=== PATIENT | female | born 2000 | race Caucasian/White ===

== ENCOUNTER → 2019-02-02 | Outpatient (CLI) | payer OTHER | LOC: MC.RAD 11:00 | DX: N63.10 Unspecified lump in the right breast, unspecified quadrant (principal) ==

== ENCOUNTER 2020-04-18 06:59 | Emergency (ER) | payer OTHER ==
[~2020-04-18] VITALS: Ht 162.6 cm; Wt 61.4 kg
[2020-04-18 07:17] VITALS: TEMP 98.8
[2020-04-18 09:31] LABS: COLLECTION METHOD CLEAN CATCH
[2020-04-18 09:36] LABS: BASO % 0.2 % (0.0-2.0); EOS # 0.1 (0.0-0.7); EOS % 0.8 % (0-4.0); GRAN # 11.3 (1.4-6.5); GRAN % 84.6 % (42.2-75.2); HEMOGLOBIN 14.4 g/dl (12.5-16.0); LYMPH # 0.9 (1.2-3.4); LYMPH % 6.7 % (20.0-51.0); MEAN CELL VOLUME 95 fl (80.0-100.0); MEAN CORPUSCULAR HEMOGLOBIN 31 pg (27.0-31.0); MEAN CORPUSCULAR HGB CONC 33 g/dl (33.0-37.0); MEAN PLATELET VOLUME 9.4 fl (7.4-10.4); MONO % 7.4 % (1.7-9.3); PLATELET COUNT 447 K/mm3 (130-400); RED BLOOD COUNT 4.65 M/mm3 (4.10-5.30)
[2020-04-18 09:52] LABS: ALBUMIN 4.6 gm/dL (3.5-5.0); BILIRUBIN,TOTAL 0.5 mg/dL (0.0-1.0); C-REACTIVE PROTEIN 7.8 mg/dL (0.0-0.9); CALCIUM 9.3 mg/dL (8.4-10.2); CREATININE, serum 0.74 (0.52-1.25); POTASSIUM 3.7 mmol/L (3.4-5.0); TOTAL PROTEIN 8.5 gm/dL (6.4-8.2)
[2020-04-18 10:01] LABS: MUCOUS Present /lpf; PH 5 (5-8); URINE APPEARANCE Hazy; URINE BACTERIA None Seen /hpf; URINE BILIRUBIN Negative (NEGATIVE); URINE BLOOD Negative (NEGATIVE); URINE COLOR Yellow; URINE GLUCOSE Negative (NEGATIVE); URINE KETONE Negative (NEGATIVE); URINE LEUKOCYTE ESTERASE Negative (NEGATIVE); URINE NITRATE Negative (NEGATIVE); URINE PROTEIN(semi-quant) 2+ (NEGATIVE); URINE RBC 0-2 /hpf; URINE UROBILINOGEN Negative (NEGATIVE)
[2020-04-18] MEDS ORDERED: DOXYCYCLINE 10100 MG PO (11:51)
[2020-04-18 12:55] VITALS: BP 118/76; PULSE 100
== END 2020-04-18 12:56 | disposition home or self-care (01) ==
LOC: COL.ER 06:59
PROVIDERS: Physician Assistant
DX: N73.9 Female pelvic inflammatory disease, unspecified (principal); R11.0 Nausea; R63.0 Anorexia; Z32.02 Encounter for pregnancy test, result negative; Z88.0 Allergy status to penicillin
CPT/HCPCS: J0696; J1885; Q9967

== ENCOUNTER 2021-07-05 09:24 | Outpatient (CLI) | payer OTHER, BC, MEDICAID ==
[~2021-07-05] VITALS: Ht 162.6 cm; Wt 70.9 kg
[~2021-07-05 09:24] MED LIST: DOXYCYCLINE 10100 MG PO
[2021-07-05 09:40] VITALS: BP 112/74; PULSE 104; TEMP 98.1
[2021-07-05] MEDS ORDERED: PRILOSEC 20MG20 MG PO (09:40)
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
[2021-07-05 10:40] VITALS: PULSE 78
--- NOTE | 2021-07-05 10:41 | NUR ---
1040 REACTIVE STRIP NOTED. NO COMPLIANTS OF PAIN, BLEEDING, LEAKING, ALL DISCHARGE INSTRUCTIONS GIVEN WITH VERBAL UNDERSTANDING NOTED.
== END 2021-07-05 10:40 | disposition home or self-care (01) ==
LOC: LDRO 09:24
DX: O9A.219 Injury, poisoning and certain other consequences of external causes complicating pregnancy, unspecified trimester (principal); Z3A.00 Weeks of gestation of pregnancy not specified; V89.0XXA Person injured in unspecified motor-vehicle accident, nontraffic, initial encounter

== ENCOUNTER 2021-08-20 02:00 | Outpatient (CLI) | payer BC, MEDICAID ==
[~2021-08-20] VITALS: Ht 160 cm; Wt 78.2 kg
[~2021-08-20 02:00] MED LIST changes: +PRILOSEC 20MG20 MG PO
--- NOTE | 2021-08-20 02:06 | NUR ---
PT BROUGHT TO UNIT IN WHEELCHAIR. PT PRESENTS COMPLAINING OF CRAMPING FOR 1 WEEK AND MUCOUS PLUG FALLING OUT. PT DENIES SROM, DECREASED MOVEMENT, OR VAGINAL BLEEDING. PT IS G1PO, 36.6 WEEKS, GBS UNKNOWN. PT IS SHOWN TO ROOM LDR 4 BY THIS RN AND INSTRUCTED TO PUT ON GOWN
--- NOTE | 2021-08-20 02:10 | NUR ---
EFM AND TOCO APPLIED. PLAN OF CARE DISCUSSED AND PT VERBALIZED AN UNDERSTANDING.
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
[2021-08-20 02:30] VITALS: BP 116/61; PULSE 104; TEMP 98.3
[2021-08-20] MEDS ORDERED: ASPIRIN 81M81 MG/TA2 PO (02:30)
[2021-08-20] MEDS ORDERED: NATURAL IRON65 MG PO (02:31)
[2021-08-20] MEDS ORDERED: PRENATAL 191 CTB (02:31)
--- NOTE | 2021-08-20 02:35 | NUR ---
CALL LIGHT WITHIN REACH, FRESH ICE WATER GIVEN TO PATIENT. PT RESTING IN BED, NO SIGNS OF DISTRESS. PT DENIES FURTHER NEEDS AT THIS TIME
--- NOTE | 2021-08-20 02:41 | NUR ---
VISIBLE BREAKS IN FHTS ARE OBSERVED. MOTHER SITTING STRAIGHT UP IN BED, RN ASSISTED PT INTO A LATERAL POSITION AND ADJUSTED EFM. PT DENIES FURTHER NEEDS AT THIS TIME
[2021-08-20 03:00] VITALS: BP 123/73; PULSE 80
--- NOTE | 2021-08-20 03:28 | NUR ---
EFM AND TOCO REMOVED TO ALLOW PT TO GET DRESSED. PLAN OF CARE DISCUSSED AND PT VERBALIZED AN UNDERSTANDING.
[2021-08-20 03:30] VITALS: BP 123/59; PULSE 86
--- NOTE | 2021-08-20 03:35 | NUR ---
DISCHARGE TEACHING REVIEWED WITH PATIENT AND PATIENT VERBALIZED AN UNDERSTANDING AND DENIES FURTHER NEEDS AT THIS TIME. PT GIVEN COPY OF DISCHARGE TEACHING
--- NOTE | 2021-08-20 03:45 | NUR ---
PT DISCHARGED IN STABLE UNDELIVERED CONDITION AT THIS TIME. PT AND FRIEND AMBULATED OFF UNIT AT THIS TIME
== END 2021-08-20 03:45 | disposition home or self-care (01) ==
LOC: LDRO 02:00 → LDR 02:06 → LDRO 03:45
DX: O26.893 Other specified pregnancy related conditions, third trimester (principal); M54.50 Low back pain, unspecified; R10.9 Unspecified abdominal pain; Z3A.36 36 weeks gestation of pregnancy

== ENCOUNTER 2021-08-28 03:57 | Outpatient (CLI) | payer BC, MEDICAID ==
[~2021-08-28] VITALS: Ht 160 cm; Wt 75.5 kg
[~2021-08-28 03:57] MED LIST changes: +ASPIRIN 81M81 MG/TA2 PO; +NATURAL IRON65 MG PO; +PRENATAL 191 CTB
--- NOTE | 2021-08-28 04:00 | NUR ---
Ambulatory to unit for labor assessment. Reports "contractions woke me up and they've been going on for 2 hours. They seem to be father apart now" Denies vaginal bleeding or loss of fluid. Oriented to room, monitor, plan of are.
[2021-08-28 04:16] VITALS: BP 122/79; PULSE 82; TEMP 98.5
--- NOTE | 2021-08-28 05:10 | NUR ---
repeat SVE with no changes noted.
[2021-08-28 05:15] VITALS: BP 126/79; PULSE 84
--- NOTE | 2021-08-28 05:30 | NUR ---
Discharge innstructions reviewed with pt. Questions invited and answere. Ambulatory off unit.
== END 2021-08-28 05:30 | disposition home or self-care (01) ==
LOC: LDRO 03:57
DX: O47.1 False labor at or after 37 completed weeks of gestation (principal); Z3A.38 38 weeks gestation of pregnancy

== ENCOUNTER 2021-09-04 02:02 | Outpatient (CLI) | payer BC, MEDICAID ==
[~2021-09-04] VITALS: Ht 160 cm; Wt 79.1 kg
[2021-09-04 02:30] VITALS: BP 132/87; PULSE 85; TEMP 97.8
--- NOTE | 2021-09-04 02:30 | NUR ---
0230 G1L0 39 WEEK GEST TO LR6 WITH C/O CONTRACTIONS STARTING AROUND 0100 TONIGHT. EFM ON. STATES CONTRACTIONS ABOUT EVERY 5 MINUTES BUT STATES HAS CONSTANT TIGHTENING FEELING ON TOP OF UTERUS. UTERUS PALPATED FOR SEVERAL MINUTES AND NO CONTRACTIONS FELT. NO CONTRACTIONS NOTED ON EFM. SVE /-2 WHICH PT STATES THAT WAS HER EXAM IN THE [facility]RS OFFICE LAST SATURDAY. ADM ASSESSMENT COMPLETED. 0245 SM 200 CC EMESIS OF UNDIGESTED FOOD. DR VELÁSQUEZ ON UNIT AND EFM PATTERN OBSERVED AND REPORT GIVEN.
[2021-09-04 03:30] VITALS: BP 138/87; PULSE 89
--- NOTE | 2021-09-04 03:30 | NUR ---
0330 SVE WITH NO CERVICAL CHANGE. DISMISS INSTRUCTIONS GIVEN. 0350 HOME WITH INSTRUCTIONS.
== END 2021-09-04 03:50 | disposition home or self-care (01) ==
LOC: LDR 02:02 → LDRO 02:02
DX: O47.1 False labor at or after 37 completed weeks of gestation (principal); Z3A.39 39 weeks gestation of pregnancy
CPT/HCPCS: OP

== ENCOUNTER 2021-09-06 05:56 | Inpatient (IN) | payer BC, MEDICAID ==
[2021-09-06] VITALS (22 sets, daily range): BP systolic 120–158; BP diastolic 74–108; PULSE 70–100; TEMP 97.5–98.2
[~2021-09-06] VITALS: Ht 160 cm; Wt 76.8 kg
--- NOTE | 2021-09-06 06:15 | NUR ---
0615- 39.3, G1L0 arrives on unit with c/o ctx that started at 0430. To LDR4 via wheel chair. Changes into clean gown. Reports ctx every 3-4min. Denies any LOF, or VB. Reports normal movement. Pt noted to be breathing through contractions. 0620EFM explained and placed. FHR tracing well. VS obtained. Assessment completed. 0625SVE 3-/-1. Tight BOW palpated with SVE. Plan of care reviewed with pt and family who verbalize understanding. Call light within reach. 0626EFM of for pt to ambulate to BR. 0636EFM reapplied and tracing well. FHR with minimal variablity. Pt assisted to change positions. 0657Dr. Roles notified of pt arrival to unit. See physician notification. Cat I strip. 0659Pt calls RN to room. SROM for moderate amount of thick meconium fluid. 0701Dr. Roles updated on pt. See physician notification. 0715IV to left FA. IVF infusing. Pt requesting epidural. Fredy Arrieta DIE CUTTER notified. 0725IV abx given. See EMAR.
[2021-09-06 07:28] LABS: BASO # 0.1 K/mm3 (0.0-0.2); BASO % 0.5 % (0.0-2.0); EOS % 0.3 % (0.0-4.0); GRAN # 6.7 K/mm3 (1.4-6.5); GRAN % 66.6 % (42.2-75.2); LYMPH # 2.2 K/mm3 (1.2-3.4); LYMPH % 21.4 % (20.0-51.0); MEAN CELL VOLUME 81 fl (80.0-100.0); MEAN CORPUSCULAR HGB CONC 31 g/dl (33.0-37.0); MEAN PLATELET VOLUME 11.2 fl (7.4-10.4); MONO % 10.1 % (1.7-9.3); PLATELET COUNT 321 K/mm3 (130-400); RED BLOOD COUNT 3.63 M/mm3 (4.10-5.30); REDCELL DISTRIBUTION WIDTH-CV 14.5 % (11.5-14.5)
[2021-09-06 07:33] LABS: HEMATOCRIT 29.3 % (37.0-47.0); MEAN CORPUSCULAR HEMOGLOBIN 25 pg (27-31)
--- NOTE | 2021-09-06 07:51 | NUR ---
0751Variable decel noted. RN to bedside to adj EFM. 0753RN to bedside. FHR audible in 50-60's. Pt left lateral. LR bolus infusing. 0757Dr. Roles updated on pt. See physician notification. FSE placed by Edmundo Mcdaniel RN. SVE unchanged. Pt right lateral. O2 applied at 10L via mask. FHR cont. 60's-80's. 0800Dr. Roles updated on pt. Pt to knees chest. FHR continues 80's. Orders to move pt to OR suite. Pt an family cont. updated on plan of care. 0803EFM off and pt to OR suite via bed.
--- NOTE | 2021-09-06 18:38 | NUR ---
REPORT RECEIVED. PLAN OF CARE REVIWED.
[2021-09-07] VITALS: BP 137/88; PULSE 70; TEMP 97.9
[2021-09-07 04:35] VITALS: BP 120/78; PULSE 68; TEMP 97.9
[2021-09-07 07:06] LABS: HEMATOCRIT 21.5 % (37.0-47.0); HEMOGLOBIN 6.4 g/dl (12.5-16.0)
[2021-09-07 07:20] VITALS: BP 130/87; PULSE 80; TEMP 98.6
--- NOTE | 2021-09-07 09:13 | NUR ---
Moss Picker received consult from the OB for patient who is a single mother and lives alone. SW met with patient to assess for needs and review available resources and services. Patient's friend, Kareem is at bedside. SW asked about father of baby and patient states he is not involved and she does not know his name. Patient lives alone in [place] and her parents, Jacek (ph#[phone]) and Zainab (ph#[phone]) also live in [place] are supportive. Patient works at [employer] and advised she plans to return to work after 6 weeks. Patient advised her mother, Zainab will provide childcare. Patient does not have any other children. Patient advised she is established with [facility] and has applied for food stamps. Patient denied any history of anxiety or depression. SW provided [facility] Resource Guide and reviewed resources such as [facility] and [employer]. Patient advised she has all supplies needed for baby and has a bassinet for baby to sleep in. SW spoke with patient's RN and provided the above update.
--- NOTE | 2021-09-07 10:25 | NUR ---
Initial visit; Parents thanked Company Controller for offering congratulations and God's blessings for the of their daughter. Company Controller thanked family for choosing [facility].
[2021-09-07 12:00] VITALS: BP 125/73; PULSE 81; TEMP 98.1
[2021-09-07] MEDS ORDERED: PERCOCET 325 MG1 TA2 PO (15:29)
[2021-09-07] MEDS ORDERED: MOTRIN 800800 MG/TAB PO (15:29)
[2021-09-07 16:05] VITALS: BP 118/72; PULSE 93; TEMP 98.6
--- NOTE | 2021-09-07 19:02 | NUR ---
REPORT RECEIVED, PLAN OF CARE REVIEWED. PATIENT IN SHOWER, SUPPORT PERSON IN ROOM WITH INFANT.
[2021-09-07 19:35] VITALS: BP 118/66; PULSE 95; TEMP 98.1
--- NOTE | 2021-09-07 23:10 | NUR ---
PATIENT AMBULATED IN HALLWAY WITH INFANT IN CRIB. PATIENT RETURNED TO ROOM AND EXPRESSED SLIGHT RELIEF FROM PAIN IN SHOULDERS.
[2021-09-08 07:45] VITALS: BP 126/81; PULSE 80; TEMP 97.3
[2021-09-08 12:40] VITALS: BP 126/78; PULSE 100; TEMP 98.1
== END 2021-09-08 12:45 | disposition home or self-care (01) | DRG 788 ==
LOC: LDRO 05:56 → OB 06:20 → LDR 06:20 → OB 11:00
PROVIDERS: Obstetrics & Gynecology; ADMIT Obstetrics & Gynecology
PROC: 10D00Z1 Extraction of Products of Conception, Low, Open Approach (ICD-10-PCS; principal; 2021-09-06)
DX: O99.02 Anemia complicating childbirth (principal); D64.9 Anemia, unspecified; O99.344 Other mental disorders complicating childbirth; F41.9 Anxiety disorder, unspecified; O76 Abnormality in fetal heart rate and rhythm complicating labor and delivery; O77.0 Labor and delivery complicated by meconium in amniotic fluid; O99.824 Streptococcus B carrier state complicating childbirth; Z37.0 Single live birth; Z3A.39 39 weeks gestation of pregnancy
CPT/HCPCS: J0171; J0330; J0690; J2270; J2590; J2704; J3010; J7120

== ENCOUNTER 2021-09-09 22:18 | Emergency (ER) | payer BC, MEDICAID ==
[~2021-09-09] VITALS: Ht 162.6 cm; Wt 75.0 kg
[~2021-09-09 22:18] MED LIST changes: +MOTRIN 800800 MG/TAB PO; +PERCOCET 325 MG1 TA2 PO
[2021-09-09 23:05] LABS: MEAN CELL VOLUME 83 fl (80.0-100.0); MEAN CORPUSCULAR HGB CONC 30 g/dl (33.0-37.0); MEAN PLATELET VOLUME 10.2 fl (7.4-10.4); PLATELET COUNT 373 K/mm3 (130-400); RED BLOOD COUNT 2.63 M/mm3 (4.10-5.30); REDCELL DISTRIBUTION WIDTH-CV 15.2 % (11.5-14.5)
[2021-09-09 23:22] LABS: CALCIUM 8.4 mg/dL (8.4-10.2); CREATININE, serum 0.71 mg/dL (0.57-1.11); POTASSIUM 3.8 mmol/L (3.5-4.5)
[2021-09-09 23:25] LABS: HEMATOCRIT 21.8 % (37.0-47.0); HEMOGLOBIN 6.5 g/dl (12.5-16.0); MEAN CORPUSCULAR HEMOGLOBIN 25 pg (27-31)
[2021-09-09 23:32] LABS: BAND 1 % (0-10); EOSINOPHIL 2 % (0-4); LYMPHOCYTE 22 % (20.0-51.0); METAMYELOCYTE 2 % (0-0); NEUTROPHILS 65 % (42.0-75.2); PLATELET ESTIMATE NORMAL (NORMAL)
[2021-09-09 23:34] LABS: ANISOCYTOSIS 1+; HYPOCHROMIA 1+
[2021-09-10 00:15] LABS: COLLECTION METHOD CLEAN CATCH
[2021-09-10 00:21] LABS: MUCOUS Present (NOT PRESENT); PH 6 (5-8); SQUAMOUS EPITHELIAL 0-2 /hpf (0-10); URINE APPEARANCE Clear (CLEAR/HAZY); URINE BACTERIA None Seen /hpf (NONE SEEN); URINE BILIRUBIN Negative (NEGATIVE); URINE BLOOD 1+ (NEGATIVE); URINE COLOR Yellow (YELLOW); URINE GLUCOSE Negative (NEGATIVE); URINE KETONE Negative (NEGATIVE); URINE LEUKOCYTE ESTERASE Negative (NEGATIVE); URINE NITRATE Negative (NEGATIVE); URINE PROTEIN(semi-quant) 1+ (NEGATIVE); URINE RBC 0-2 /hpf (0-2); URINE UROBILINOGEN Negative (NEGATIVE)
[2021-09-10 00:53] VITALS: BP 153/72; PULSE 92; TEMP 98.7
== END 2021-09-10 00:59 | disposition home or self-care (01) ==
LOC: COL.ER 22:18
PROVIDERS: Emergency Medicine
DX: M79.89 Other specified soft tissue disorders (principal); R79.1 Abnormal coagulation profile

== ENCOUNTER → 2021-09-11 | Outpatient (CLI) | payer BC, MEDICAID | LOC: COL.VAS 08:04 | DX: R60.0 Localized edema (principal); M79.89 Other specified soft tissue disorders ==

== ENCOUNTER 2023-05-12 13:07 | Emergency (ER) | payer BC, MEDICAID ==
[~2023-05-12] VITALS: Ht 165.1 cm; Wt 66.4 kg
[~2023-05-12 13:07] MED LIST changes: +FLEXERIL 1010 MG/TAB PO; +NAPROSYN500 MG PO; +PROMETHAZINE12.5 M5 PO
[2023-05-12 13:41] LABS: PROTHROMBIN TIME 10.9 SECONDS (9.7-12.8)
[2023-05-12 16:10] VITALS: BP 107/59; PULSE 95; TEMP 98
== END 2023-05-12 16:12 | disposition home or self-care (01) ==
LOC: COL.ER 13:07
PROVIDERS: Physician Assistant
DX: O20.0 Threatened abortion (principal); Z3A.00 Weeks of gestation of pregnancy not specified
CPT/HCPCS: J2765; J7030